=== PATIENT | male | born 1945 | race American Indian/Alaskan Native ===

== ENCOUNTER 2017-03-20 07:19 | Inpatient (IN) | payer MEDICARE ==
[2017-03-20 07:27] VITALS: BMI 21.2
[2017-03-20 08:09] LABS: VENOUS BLOOD GAS PCO2 40 mmHg (40-60); VENOUS BLOOD PH 7.52 (7.32-7.43)
[2017-03-20 08:11] LABS: BASO # 0.1 K/uL (0.0-0.2); BASO % 0.6 % (0.0-2.0); EOS # 0.3 K/uL (0.0-0.7); EOS % 2.4 % (0.0-4.0); HEMATOCRIT 31.8 % (35.0-51.0); LYMPH # 2.5 K/uL (1.0-4.3); LYMPH % 18.2 % (20.0-40.0); MEAN CELL VOLUME 82.1 fL (80.0-94.0); MEAN CORPUSCULAR HEMOGLOBIN 26.7 pg (27.0-31.0); MEAN CORPUSCULAR HGB CONC 32.5 g/dL (33.0-37.0); MEAN PLATELET VOLUME 8.4 fL (7.2-11.7); MONO # 0.6 K/uL (0.0-0.8); MONO % 4.5 % (0.0-10.0); NRBC % 0.1 % (0.0-2.0); RED CELL DISTRIBUTION WIDTH 17.2 % (11.5-14.5); WHITE BLOOD COUNT 13.8 K/uL (4.8-10.8)
[2017-03-20 08:14] LABS: INR 1.2
[2017-03-20] MEDS ORDERED: Vancomycin 1 GM 1 GM/250 ML BAG IV STA (08:16)
[2017-03-20] MEDS ORDERED: Cefepime 1 GM in Sodium Chloride 0.9% 50 ML IVPB ONE (08:17)
[2017-03-20] MEDS ORDERED: Ciprofloxacin 400mg/200ml D5W 400 MG/200 ML BAG IVPB STA (08:18)
--- NOTE | 2017-03-20 08:23 | C.PDOC ---
History Of Present Illness 71 y/o male [facility] for evaluation afterof tachycardic and tachypnea. As per EMS, patient has been tachycardic and tachypenic since his arrival to the [facility] 5 days ago, but symptoms apparently worsened today. As per [facility] , pt is currently at his baseline mental status, which is unresponsive and unable to follow commands. As per [facility] records, patient is DNR/DNI. Time Seen by Provider: 03/20/17 07:24 Chief Complaint (Nursing): Medical Clearance History Per: EMS History/Exam Limitations: clinical condition Onset/Duration Of Symptoms: Other (worse today ) Current Symptoms Are (Timing): Still Present Reports Recently: Hospitalized Additional History Per: EMS, [facility] Past Medical History Reviewed: Historical Data, Nursing Documentation, Vital Signs Vital Signs: Last Vital Signs Temp 97.4 F L 03/22/17 07:52 Pulse 87 03/22/17 08:00 Resp 20 03/22/17 07:52 BP 115/72 03/22/17 11:47 Pulse Ox 100 03/22/17 07:52 - Medical History PMH: Alzheimer's Disease, Dementia, GERD, HTN, Chronic Kidney Disease, Seizures - [facility] Procedures ASSISTANCE WITH RESPIRATORY VENTILATION, <24 HRS, CPAP (06/22/16) CENTRAL VENOUS CATHETER PLACEMENT WITH GUIDANCE (09/17/12) DRAINAGE OF BLADDER WITH DRAINAGE DEVICE, VIA OPENING (10/15/16) INSERTION OF ENDOTRACHEAL AIRWAY INTO TRACHEA, VIA OPENING (06/22/16) INSERTION OF FEEDING DEVICE INTO STOMACH, ENDO (10/08/15) INSERTION OF INFUSION DEV INTO SUP VENA CAVA, PERC APPROACH (10/15/16) INSPECTION OF UPPER INTESTINAL TRACT, ENDO (10/08/15) INTRODUCE OF OTH THERAP SUBST INTO RESP TRACT, VIA OPENING (03/11/17) INTRODUCTION OF NUTRITIONAL INTO UP GI, VIA OPENING (03/11/17) OTHER ENDOSCOPY OF SM INTEST (06/18/13) OTHER MISC PROCEDURE (10/14/14) REPLACE GASTROSTOMY TUBE (06/18/13) RESPIRATORY VENTILATION, LESS THAN 24 CONSECUTIVE HOURS (06/22/16) ULTRASONOGRAPHY OF RIGHT UPPER EXTREMITY VEINS, GUIDANCE (10/15/16) Family History: States: Other Other Family History: noncontributory - Social History Hx Tobacco Use: No Hx Alcohol Use: No Hx Substance Use: No - Immunization History Hx Tetanus Toxoid Vaccination: No Hx Influenza Vaccination: No Hx Pneumococcal Vaccination: No Review Of Systems Review Of Systems: ROS cannot be obtained secondary to pt's inabilty to answer questions. Physical Exam - Physical Exam Appears: Non-toxic, Chronically Ill Skin: Warm, Dry, No Rash, Other (4 sacral decubitus ulcers, right one with serosanguinous foul smelling discharge) Head: Normacephalic Eye(s): bilateral: Normal Inspection Oral Mucosa: Dry Neck: Supple Chest: Symmetrical Cardiovascular: Rhythm Regular (tachycardic), No Murmur Respiratory: No Rales, No Rhonchi, No Wheezing, Other (tachypnic) Gastrointestinal/Abdominal: Soft, No Tenderness, No Distention, No Guarding, No Rebound, Other (peg tube in LUQ) Back: Other (decubitus ulcers at sacral region) Extremity: No Tenderness, No Pedal Edema, No Deformity, No Swelling, Other ( contracted lower extremities, right heel ulcer with eschar) Extremity: Bilateral: Atraumatic Neurological/Psych: No Normal Speech (non-verbal), No Response To Commands, Other (awake) ED Course And Treatment - Laboratory Results Result Diagrams: 03/22/17 07:28 03/22/17 07:28 ECG: Interpreted By Me, Viewed By Me ECG Rhythm: Sinus Tachycardia ECG Interpretation: No Acute Changes Interpretation Of ECG: Left axis deviation. No acute ST/T wave changes. O2 Sat by Pulse Oximetry: 98 (on RA) Pulse Ox Interpretation: Normal - Radiology CXR: Interpreted by Me, Viewed By Me CXR Interpretation: Yes: Other (Picc line visible at SVC). No: Infiltrates Progress Note: Blood work, CXR, EKG, UA ordered and reviewed. Pt was given broad spectrum antibioitics - IV Cefepime, IV Ciprofloxacin (Avelox backordered) , IV vancomycin, as well as tylenol LA. IV Ns bolus given. - Physician Consult Information Physician Contacted: Bishnu Cavazos Outcome Of Conversation: Discussed patient with Dr. Cavazos, patient has known osetomyelitis of right hip and multiple sacral decubs- likely source for fever. He has PICC line and has been getting IV antbiotics at [facility]. Agrees with admission. Patient will need placement in [facility] for higher level of care. Critical Care Time - Critical Care Note Total Time (in mins): 35 Documented critical care: time excludes all time spent performing seperately billable procedures. Disposition - Disposition Disposition: HOSPITALIZED Disposition Time: 09:28 Condition: SERIOUS - Clinical Impression Clinical Impression: SIRS (systemic inflammatory response syndrome), Osteomyelitis of hip, Dehydration, Medical assessment - Scribe Statement The provider has reviewed the documentation as recorded by the Scribe Eileen Hall All medical record entries made by the Scribe were at my direction and personally dictated by me. I have reviewed the chart and agree that the record accurately reflects my personal performance of the history, physical exam, medical decision making, and the department course for this patient. I have also personally directed, reviewed, and agree with the discharge instructions and disposition. Decision To Admit - Pt Status Changed To: Hospital Disposition Of: Inpatient - Admit Certification Admit to Inpatient:: After my assessment, the patient will require hospitalization for at least two midnights. This is because of the severity of symptoms shown, intensity of services needed, and/or the medical risk in this patient being treated as an outpatient. - InPatient: Physician Admission Certification: I certify that this patient requires 2 or more midnights of care for the following reason:: see notes - . Bed Request Type: Telemetry Admitting Physician: Bishnu Cavazos Patient Diagnosis: SIRS (systemic inflammatory response syndrome), Decubitus ulcer of sacral area , Osteomyelitis of hip, Dehydration
[2017-03-20 08:27] LABS: CHLORIDE 120 mmol/L (98-107); POTASSIUM 4.5 mmol/L (3.6-5.2); SODIUM 157 mmol/L (132-148)
[2017-03-20 08:29] LABS: AST/SGOT 39 U/L (17-59); BILIRUBIN,TOTAL 0.4 mg/dL (0.2-1.3); CARBON DIOXIDE 27 mmol/L (22-30); GFR AFRICAN-AMERICAN > 60
[2017-03-20 08:30] LABS: ALB/GLOB RATIO 0.6 (1.0-2.1); ALKALINE PHOSPHATASE 192 U/L (38-126); ALT/SGPT 52 U/L (21-72); BLOOD UREA NITROGEN 39 mg/dL (9-20); CALCIUM 8.8 mg/dl (8.6-10.4); GLUCOSE,RANDOM 142 mg/dL (75-110); MAGNESIUM 2.2 mg/dL (1.6-2.3); PHOSPHOROUS 2.2 mg/dL (2.5-4.5); TOTAL PROTEIN 7.9 g/dL (6.3-8.3)
[2017-03-20 09:05] LABS: RBC URINE 23 /hpf (0-3); URINE BACTERIA RARE (<OCC); URINE BILIRUBIN NEGATIVE (NEGATIVE); URINE BLOOD 1+ (NEGATIVE); URINE COLOR Yellow (YELLOW); URINE GLUCOSE (UA) NORMAL (Normal); URINE KETONE NEGATIVE (NEGATIVE); URINE LEUKOCYTE ESTERASE 1+ Leu/uL (Negative); URINE PROTEIN 2+ mg/dL (NEGATIVE); URINE UROBILINOGEN NORMAL mg/dL (0.2-1.0); WBC URINE 49 /hpf (0-5)
[2017-03-20] MEDS ORDERED: Cefepime 1 GM in Sodium Chloride 0.9% 100 ML IVPB ONE (10:00)
--- NOTE | 2017-03-20 10:00 | RAD ---
HISTORY: Sepsis Patient COMPARISON: 05/08/2012 FINDINGS: LUNGS: Mild venous congestion. Patchy increased markings at the left lung base. Right PICC line with tip extending to the proximal right SVC. PLEURA: No significant pleural effusion identified, no pneumothorax apparent. CARDIOVASCULAR: Normal. OSSEOUS STRUCTURES: No significant abnormalities. VISUALIZED UPPER ABDOMEN: Normal. OTHER FINDINGS: None. IMPRESSION: Mild venous congestion. Patchy increased markings at the left lung base. Right PICC line with tip extending to the proximal right SVC.
--- NOTE | 2017-03-20 10:59 | CP.PCM.CON ---
History of Present Illness - History of Present Illness History of Present Illness: [facility] recent blood cultures + at [facility] large wounds + confused/ cachectic PMH- reviewed OBS ?CVA HTN failure to thrive ROS unobtainable NKA FH- non contrib Review of Systems - Review of Systems Systems not reviewed;Unavailable: Altered Mental Status All systems: reviewed and no additional remarkable complaints except Past Patient History - Infectious Disease Hx of Infectious Diseases: None - Tetanus Immunizations Tetanus Immunization: Unknown - Past Social History Smoking Status: Never Smoked - CARDIAC Hx Hypertension: Yes Hx Pacemaker: No - PULMONARY Hx Respiratory Disorders: No - NEUROLOGICAL Hx Alzheimer's Disease: Yes Hx Dementia: Yes Hx Seizures: Yes - HEENT Hx HEENT Problems: Yes (peg tube) Hx Difficulty Chewing: Yes Hx Glaucoma: Yes (LASER SURGERY) - RENAL Hx Chronic Kidney Disease: Yes - ENDOCRINE/METABOLIC Hx Endocrine Disorders: Yes Hx Diabetes Mellitus Type 1: Yes - HEMATOLOGICAL/ONCOLOGICAL Hx Blood Disorders: Yes (SEPSIS) - INTEGUMENTARY Hx Dermatological Problems: Yes Other/Comment: multiple decubiti ulcers to sacrum STAGE 2 and R HIP STAGE 4 &L buttocks STAGE 2 , b/l heel wounds, peg.COLOSTOMY LEFT LOWER ABDOMINAL AREA. - MUSCULOSKELETAL/RHEUMATOLOGICAL Hx Musculoskeletal Disorders: Yes (CONTRACTURE) Hx Falls: Yes - GASTROINTESTINAL Hx Gastrointestinal Disorders: Yes (PEG) Hx Colostomy: Yes Hx Gastroesophageal Reflux: Yes - GENITOURINARY/GYNECOLOGICAL Hx Genitourinary Disorders: Yes Hx Incontinence: Yes - PSYCHIATRIC Hx Substance Use: No - SURGICAL HISTORY Hx Surgeries: Yes Other/Comment: colostomy, picc in and out, peg tube - ANESTHESIA Hx Anesthesia: Yes Hx Anesthesia Reactions: No Hx Malignant Hyperthermia: No Meds Home Medications: Home Medication List Medication Instructions Recorded Confirmed Type Acetaminophen [Tylenol 650 mg Supp] 650 mg MN STAT sup 03/22/17 Rx Albuterol/Ipratropium [Duoneb 3 3 ml IH RQ6 PRN neb 03/22/17 Rx mg/0.5 mg (3 ml) UD] Enoxaparin [Lovenox] 40 mg SC DAILY syr 03/22/17 Rx Folic Acid 1 mg GT DAILY tab 03/22/17 Rx Latanoprost 0.005% Opht [Xalatan 0 ml OD HS bottle 03/22/17 Rx Opht] Meropenem [Merrem IV] 1 gm IVPB Q8 vial 03/22/17 Rx Metoprolol Tartrate [Lopressor] 25 mg GT BID tab 03/22/17 Rx Nut.tx.gluc.intoler,Lac-Fr,Soy 237 ml GT Q4 03/22/17 Rx [Glucerna 1.2 John] Pantoprazole [Protonix Susp] 40 mg GT DAILY packet 03/22/17 Rx Vancomycin 1 gm/NS 200 ml 1 gm IVPB Q12 42 Days bag 03/22/17 Rx [Vancocin] Allergies/Adverse Reactions: Allergies Allergy/AdvReac Type Severity Reaction Status Date / Time Latex, Natural Rubber AdvReac SWELLING Verified 03/20/17 07:26 Physical Exam - Constitutional Appears: Confused, Cachectic, Chronically Ill - Head Exam Head Exam: ATRAUMATIC, NORMAL INSPECTION, NORMOCEPHALIC - Eye Exam Eye Exam: PERRL. absent: Scleral icterus Pupil Exam: NORMAL ACCOMODATION - ENT Exam ENT Exam: Mucous Membranes Dry, Normal External Ear Exam - Neck Exam Neck exam: Negative for: Lymphadenopathy - Respiratory Exam Respiratory Exam: Decreased Breath Sounds, Rhonchi - Cardiovascular Exam Cardiovascular Exam: REGULAR RHYTHM, +S1, +S2 - GI/Abdominal Exam GI & Abdominal Exam: Diminished Bowel Sounds, Soft. absent: Tenderness - Rectal Exam Rectal Exam: Deferred - Exam Exam: NORMAL INSPECTION - Extremities Exam Extremities exam: Positive for: pedal edema, tenderness. Negative for: calf tenderness, pedal pulses present Additional comments: large hip decub - IV - Back Exam Back exam: absent: CVA tenderness (L), CVA tenderness (R) - Neurological Exam Neurological exam: Altered, CN II-XII Intact - Psychiatric Exam Psychiatric exam: Depressed - Skin Skin Exam: Dry Results - Vital Signs Recent Vital Signs: Last Vital Signs Temp 99.8 F H 03/20/17 09:23 Pulse 106 H 03/20/17 09:23 Resp 16 03/20/17 09:23 BP 135/74 03/20/17 09:23 Pulse Ox 98 03/20/17 09:38 - Labs Result Diagrams: 03/22/17 07:28 03/22/17 07:28 Labs: Laboratory Results - last 24 hr 03/20/17 03/20/17 03/20/17 07:32 07:59 07:59 WBC 13.8 H RBC 3.87 L Hgb 10.3 L Hct 31.8 L MCV 82.1 MCH 26.7 L MCHC 32.5 L RDW 17.2 H Plt Count 571 H MPV 8.4 Neut % (Auto) 74.3 Lymph % (Auto) 18.2 L [place] % (Auto) 4.5 Eos % (Auto) 2.4 Baso % (Auto) 0.6 Neut # 10.3 H Lymph # 2.5 [place] # 0.6 Eos # 0.3 Baso # 0.1 PT 13.4 H INR 1.2 APTT 45 H pO2 VBG pH VBG pCO2 VBG HCO3 VBG Total CO2 VBG O2 Sat (Calc) VBG Base Excess VBG Potassium Glucose Lactate Sodium Potassium Chloride Carbon Dioxide Anion Gap BUN Creatinine Est GFR ( Amer) Est GFR (Non-Af Amer) POC Glucose (mg/dL) 175 H Random Glucose Calcium Phosphorus Magnesium Total Bilirubin AST ALT Alkaline Phosphatase Total Protein Albumin Globulin Albumin/Globulin Ratio Venous Blood Potassium Urine Color Urine Clarity Urine pH Ur Specific [place] Urine Protein Urine Glucose (UA) Urine Ketones Urine Blood Urine Nitrate Urine Bilirubin Urine Urobilinogen Ur Leukocyte Esterase Urine WBC (Auto) Urine RBC (Auto) Ur Squamous Epith Cells Urine Bacteria Urine Yeast (Budding) 03/20/17 03/20/17 03/20/17 07:59 08:06 08:06 WBC RBC Hgb Hct MCV MCH MCHC RDW Plt Count MPV Neut % (Auto) Lymph % (Auto) [place] % (Auto) Eos % (Auto) Baso % (Auto) Neut # Lymph # [place] # Eos # Baso # PT INR APTT pO2 33 VBG pH 7.52 H VBG pCO2 40 VBG HCO3 31.3 VBG Total CO2 33.9 H VBG O2 Sat (Calc) 70.2 H VBG Base Excess 9.0 H VBG Potassium 5.5 H Glucose 157 H Lactate 1.8 Sodium 157 H 154.0 H Potassium 4.5 Chloride 120 H 124.0 H Carbon Dioxide 27 Anion Gap 15 BUN 39 H Creatinine 1.0 Est GFR ( Amer) > 60 Est GFR (Non-Af Amer) > 60 POC Glucose (mg/dL) Random Glucose 142 H Calcium 8.8 Phosphorus 2.2 L Magnesium 2.2 Total Bilirubin 0.4 AST 39 ALT 52 Alkaline Phosphatase 192 H D Total Protein 7.9 Albumin 3.1 L Globulin 4.9 H Albumin/Globulin Ratio 0.6 L Venous Blood Potassium 5.5 H Urine Color Yellow Urine Clarity Hazy Urine pH 7.0 Ur Specific [place] 1.016 Urine Protein 2+ H Urine Glucose (UA) Normal Urine Ketones Negative Urine Blood 1+ H Urine Nitrate Negative Urine Bilirubin Negative Urine Urobilinogen Normal Ur Leukocyte Esterase 1+ H Urine WBC (Auto) 49 H Urine RBC (Auto) 23 H Ur Squamous Epith Cells 48 H Urine Bacteria Rare Urine Yeast (Budding) Many H Assessment & Plan (1) Anemia Status: Acute (2) Sacral decubitus ulcer Status: Acute (3) Sepsis Status: Acute (4) Ulcer Status: Acute - Assessment and Plan (Free Text) Assessment: start empiric rx with coverage for MRSA and ESBL gram neg may need debridement possible pneumonia cont iv rx and wound care nutritional support
[2017-03-20 11:13] LABS: VENOUS BLOOD GAS BASE EXCESS 2.9 mmol/L (0.0-2.0); VENOUS BLOOD GAS PCO2 43 mmHg (40-60); VENOUS BLOOD PH 7.42 (7.32-7.43)
[2017-03-20] MEDS: Vancomycin 1 gm/NS 200 ml 1 GM/200 ML BAG IVPB SCH (12:31)
[2017-03-20] MEDS ORDERED: Sodium Chloride 0.9% 1,000 ML IV ONE (14:18)
[2017-03-20] MEDS: Meropenem 1 GM in Sodium Chloride 0.9% 100 ML IVPB SCH ×2 (14:58→22:30)
[2017-03-20] MEDS ORDERED: Albuterol-Ipratrop 3 mg / 0.5 (3 ml) UD IH PRN (16:42)
[2017-03-20] MEDS: Sodium Chloride 0.45% 1,000 ML IV SCH (17:18)
[2017-03-20] MEDS ORDERED: Sodium Chloride 0.45% 1,000 ML IV ONE (17:34)
[2017-03-20] MEDS: Latanoprost 2.5 ml Opht Soln OD SCH (22:30)
[2017-03-20] MEDS: levETIRAcetam 100 mg/ml (5ml) Oral Syringe GT SCH (22:30)
[2017-03-21] MEDS: Vancomycin 1 gm/NS 200 ml 1 GM/200 ML BAG IVPB SCH ×2 (00:23→13:30)
[2017-03-21 01:04] VITALS: RESP 20
--- NOTE | 2017-03-21 03:53 | HP ---
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 He was sent to [facility] for IV antibiotics and he was sent to [facility] emergency room because I cannot take care of him any more there they said. He has been tachycardiac. His baseline unresponsiveness and mental status is about the same. He has a feeding tube. He has a colostomy. All 4 extremities are contracted. He has got heel ulcers, sacral ulcers. He has had sepsis multiple times, hypertension, dementia, diabetes, CVA, colostomy feeding tube. His baseline is his eyes open and his mouth wide open, mouth breathing, nonverbal. He has glaucoma surgery, renal sufficiency, diabetes, multiple decubitus ulcers on many parts of his body which healed and came back, sacral and buttocks heals. He has got reflux, incontinence. FAMILY HISTORY: No family history. SOCIAL HISTORY: Never smoked. No alcohol. No drugs. ALLERGIES: HE HAS A LATEX ALLERGY. MEDICATIONS: He is on metoprolol, omeprazole, DuoNebs, Colace, folic acid, Glucerna, Keppra for seizures which he also has. REVIEW OF SYSTEMS: We cannot do review of systems with him because he is nonverbal and his mouth is opened at his baseline, due to a lot of crust in the mouth, his mouth is much better, now they cleaned it out, it is moist with IV fluids. PHYSICAL EXAMINATION: VITAL SIGNS: 102.1 temperature, 125 pulse, 107/54 blood pressure, 36 respiratory rate and 98% O2 sat on room air. HEENT: Head atraumatic and normocephalic. Throat now moist. Eyes are opened and staring. Mouth is in the O-sign position. NECK: Supple. HEART: Regular rate. LUNGS: Decreased breath sounds. Clear to auscultation, poor effort. ABDOMEN: Soft, he has a PEG tube with colostomy. No distention. EXTREMITIES: All 4 contracted. No edema. He has got stage IV sacral ulcers on the right hip, osteomyelitis. He has got heel ulcers. He has been septic, and he is on IV antibiotics. LABORATORY DATA: He has 13.8 white count, 10.3 hemoglobin, 31.8 hematocrit with 571 platelets. INR is 1.2. His lactate is 1.8 is down to 1. 7.42 pH down it is better. 157 sodium, potassium 4.5, BUN 39, creatinine 1, GFR is greater than 60, sugar is 142, calcium is 8.8, phosphorous 2.2, magnesium 2.2, total bilirubin is 0.4, AST is 39, ALT is 59, alk phos is 192, total protein is 7.9. Urine is 1+ leukocytes, bacteria rare, many yeast. He has consult with infectious disease. He will on albuterol, folic acid, Keppra, Lopressor, Maxipime one dose. He has got Merrem IV, vancomycin IV. He will be on IV fluids and hopefully we will get him to a LTAC since subacute rehab cannot take care of him. He is septic with right hip osteomyelitis, severe large sacral ulcer septic. Bishnu Cavazos DO
[2017-03-21] MEDS: Meropenem 1 GM in Sodium Chloride 0.9% 100 ML IVPB SCH ×3 (06:01→22:30)
[2017-03-21 07:40] LABS: HEMATOCRIT 29.3 % (35.0-51.0); MEAN CELL VOLUME 82.6 fL (80.0-94.0); MEAN CORPUSCULAR HEMOGLOBIN 26.7 pg (27.0-31.0); MEAN CORPUSCULAR HGB CONC 32.4 g/dL (33.0-37.0); MEAN PLATELET VOLUME 8.8 fL (7.2-11.7); RED CELL DISTRIBUTION WIDTH 17.2 % (11.5-14.5); WHITE BLOOD COUNT 12.1 K/uL (4.8-10.8)
[2017-03-21 08:34] LABS: CHLORIDE 117 mmol/L (98-107); SODIUM 154 mmol/L (132-148)
[2017-03-21 08:35] LABS: POTASSIUM 3.6 mmol/L (3.6-5.2)
[2017-03-21 08:37] LABS: ALB/GLOB RATIO 0.6 (1.0-2.1); AST/SGOT 28 U/L (17-59); BILIRUBIN,TOTAL 0.3 mg/dL (0.2-1.3); BLOOD UREA NITROGEN 28 mg/dL (9-20); CARBON DIOXIDE 25 mmol/L (22-30); GFR AFRICAN-AMERICAN > 60; GLUCOSE,RANDOM 105 mg/dL (75-110); TOTAL PROTEIN 6.8 g/dL (6.3-8.3)
[2017-03-21 08:38] LABS: ALKALINE PHOSPHATASE 145 U/L (38-126); ALT/SGPT 39 U/L (21-72); CALCIUM 8.5 mg/dl (8.6-10.4)
--- NOTE | 2017-03-21 10:14 | PN ---
SUBJECTIVE: I saw him resting comfortably in room #555 at [facility]. He is on IV antibiotics. He has his PEG tube feedings running. His eyes are open , his mouth is in the O sign, but it is clean, not crusty; this is his baseline. He needs 6 to 8 weeks of IV antibiotics. PHYSICAL EXAMINATION: VITAL SIGNS: He has a 97.6 temperature, 92 pulse, 120/72 blood pressure, 20 respiratory rate and 100% O2 sat on 2 L. HEENT: Head is atraumatic and normocephalic. HEART: Regular rate. LUNGS: Clear to auscultation with decreased breath sounds. ABDOMEN: Soft. He has a colostomy. He has a feeding tube. EXTREMITIES: All 4 contracted. His skin has got heel ulcers; a large, stage IV sacral ulcer and a right hip osteomyelitis. MEDICATIONS: He needs to be on albuterol, folic acid, Keppra, Lopressor, Lovenox, Merrem for 6 to 8 weeks, Protonix, IV fluids, vancomycin for 6 to 8 weeks and Xalatan. LABORATORY DATA: We are checking his labs, they are pending this morning. PLAN: Hopefully, we can get him to LTAC since [facility] could not handle him. I did call in case operator to help us to go to LTAC for his care. The patient has a severe osteomyelitis of the right hip and severe large sacral ulcer. Bishnu Cavazos DO MTDEron
[2017-03-21] MEDS: Pantoprazole 40 mg Susp UD GT SCH (10:40)
[2017-03-21] MEDS: Enoxaparin 40 mg Syringe SC SCH (10:40)
[2017-03-21] MEDS: levETIRAcetam 100 mg/ml (5ml) Oral Syringe GT SCH ×2 (10:59→19:00)
--- NOTE | 2017-03-21 13:03 | CP.PCM.PN ---
Subjective - Date & Time of Evaluation Date of Evaluation: 03/21/17 Time of Evaluation: 10:00 - Subjective Subjective: grew esbl + gram neg in [place] may started empiric rx here prognosis guarded needs comprehensive wound care eval Objective - Vital Signs/Intake and Output Vital Signs (last 24 hours): Temp Pulse Resp BP Pulse Ox 97.0 F L 87 20 126/70 97 03/21/17 08:46 03/21/17 08:46 03/21/17 08:46 03/21/17 10:40 03/21/17 08:46 Intake and Output: 03/21/17 03/21/17 06:59 18:59 Intake Total 100 Output Total 300 Balance -200 - Medications Medications: Current Medications Albuterol/Ipratropium (Duoneb 3 Mg/0.5 Mg (3 Ml) Ud) 3 ml IH RQ6 PRN PRN Reason: Wheezing Enoxaparin Sodium (Lovenox) 40 mg SC DAILY [facility] Last Admin: 03/21/17 10:40 Dose: 40 mg Folic Acid (Folic Acid) 1 mg GT DAILY [facility] Last Admin: 03/21/17 10:40 Dose: 1 mg Meropenem 1 gm/ Sodium (Chloride) 100 mls @ 100 mls/hr IVPB Q8 CR Last Admin: 03/21/17 06:01 Dose: 100 mls/hr Vancomycin/Sodium Chloride (Vancocin) 1 gm in 200 mls @ 133.333 mls/hr IVPB Q12H CR Stop: 03/25/17 12:31 Last Admin: 03/21/17 00:23 Dose: 133.333 mls/hr Sodium Chloride (Sodium Chloride 0.45%) 1,000 mls @ 40 mls/hr IV .Q24H [facility] Last Admin: 03/20/17 17:18 Dose: 40 mls/hr Latanoprost (Xalatan Opht) 0 ml OD HS [facility] Last Admin: 03/20/17 22:30 Dose: 2.5 ml Levetiracetam (Keppra) 750 mg GT BID [facility] Last Admin: 03/21/17 10:59 Dose: 750 mg Metoprolol Tartrate (Lopressor) 25 mg GT BID [facility] Last Admin: 03/21/17 10:40 Dose: 25 mg Pantoprazole Sodium (Protonix Susp) 40 mg GT DAILY [facility] Last Admin: 03/21/17 10:40 Dose: 40 mg - Labs Labs: 03/21/17 07:35 03/21/17 08:06 PT 13.4 SECONDS (9.7-12.2) H 03/20/17 07:59 INR 1.2 03/20/17 07:59 APTT 45 SECONDS (21-34) H 03/20/17 07:59 - Constitutional Appears: Confused, Cachectic, Chronically Ill - Head Exam Head Exam: NORMOCEPHALIC - Eye Exam Eye Exam: PERRL - ENT Exam ENT Exam: Mucous Membranes Dry - Neck Exam Neck Exam: absent: Lymphadenopathy, Thyromegaly - Respiratory Exam Respiratory Exam: Decreased Breath Sounds, Rhonchi - Cardiovascular Exam Cardiovascular Exam: REGULAR RHYTHM - GI/Abdominal Exam GI & Abdominal Exam: Distended, Soft - Rectal Exam Rectal Exam: Deferred Assessment and Plan (1) Anemia Status: Acute (2) Diarrhea Status: Acute (3) Hematuria Status: Acute (4) Hypernatremia Status: Acute (5) Sacral decubitus ulcer Status: Acute (6) Sepsis Status: Acute (7) Ulcer Status: Acute
[2017-03-21] MEDS: Sodium Chloride 0.45% 1,000 ML IV SCH (20:34)
[2017-03-21] MEDS: Latanoprost 2.5 ml Opht Soln OD SCH (22:30)
[2017-03-22] MEDS: Vancomycin 1 gm/NS 200 ml 1 GM/200 ML BAG IVPB SCH ×2 (00:01→12:07)
[2017-03-22] MEDS: Sodium Chloride 0.45% 1,000 ML IV SCH (04:10)
[2017-03-22] MEDS: Meropenem 1 GM in Sodium Chloride 0.9% 100 ML IVPB SCH ×2 (05:02→13:40)
[2017-03-22 07:40] LABS: HEMATOCRIT 29.1 % (35.0-51.0); MEAN CELL VOLUME 84.1 fL (80.0-94.0); MEAN CORPUSCULAR HEMOGLOBIN 26.6 pg (27.0-31.0); MEAN CORPUSCULAR HGB CONC 31.6 g/dL (33.0-37.0); MEAN PLATELET VOLUME 9.2 fL (7.2-11.7); RED CELL DISTRIBUTION WIDTH 16.8 % (11.5-14.5); WHITE BLOOD COUNT 10.5 K/uL (4.8-10.8)
[2017-03-22 07:53] VITALS: TEMP 97.4
[2017-03-22 08:13] LABS: CHLORIDE 115 mmol/L (98-107)
[2017-03-22 08:14] LABS: POTASSIUM 3.6 mmol/L (3.6-5.2); SODIUM 154 mmol/L (132-148)
[2017-03-22 08:16] LABS: ALB/GLOB RATIO 0.6 (1.0-2.1); ALKALINE PHOSPHATASE 149 U/L (38-126); ALT/SGPT 47 U/L (21-72); AST/SGOT 39 U/L (17-59); BILIRUBIN,TOTAL 0.4 mg/dL (0.2-1.3); BLOOD UREA NITROGEN 26 mg/dL (9-20); CARBON DIOXIDE 24 mmol/L (22-30); GFR AFRICAN-AMERICAN > 60; GLUCOSE,RANDOM 106 mg/dL (75-110); TOTAL PROTEIN 6.8 g/dL (6.3-8.3)
[2017-03-22 08:17] LABS: CALCIUM 8.5 mg/dl (8.6-10.4)
--- NOTE | 2017-03-22 11:09 | DS ---
HISTORY OF PRESENT ILLNESS: I saw Joann resting comfortably in bed. He is sleeping. He has the sign it is not as clear. Mild congestion, but he gets them from time to time occasionally this is baseline. He looks good. PHYSICAL EXAMINATION: GENERAL: He is nonverbal. He stares. He has got very large sacral decubitus, right hip osteomyelitis and needs 6 to 8 weeks of IV antibiotics. VITAL SIGNS: 97.9 temperature, 83 pulse, 112/68 blood pressure, 20 respiratory rate and 100% O2 saturation. HEENT: His head is atraumatic and normocephalic. HEART: Regular rate. LUNGS: Decreased breath sounds. Poor inspiration. Congestion changes daily. Sometimes needs to be suctioned. ABDOMEN: Soft. Positive PEG. Positive colostomy. EXTREMITIES: All contracted. No edema. He has got ulcers on his heels and sacrum large stage IV, also right hip osteomyelitis. He will go to [facility]. Today, I am told by case management. On DuoNeb, folic acid, Keppra, Lopressor, Lovenox, Merrem for 6 to 8 weeks, Protonix, IV fluids, vancomycin for 6 to 8 weeks, and Xalatan. LABORATORY DATA: Last labs 154 sodium, 3.6 potassium, BUN of 28, creatinine of 0.7, GFR is greater than 60, sugar is 105, and calcium is 8.5. Total bilirubin is 0.3, AST is 28, ALT is 39, alkaline phosphatase is 145, total protein is 6.8, and albumin is 2.5. White count is 12.1, getting better, hemoglobin is 9.5, hematocrit is 29.3, and platelets are 44. IMPRESSION AND PLAN: He has been seen by infectious disease and he will need to be on 6 to 8 weeks of IV antibiotics, we will get him to LTAC. Family want full code. They want everything done, no matter what. Discussed many times with them about Do no resuscitate/Do not Intubate and hospice, they refused. So, we discharged today to [facility]. DIAGNOSES: Are large sacral ulcer, right hip osteomyelitis on 6 to 8 weeks of intravenous antibiotics. Bishnu Cavazos DO [facility]
[2017-03-22] MEDS: levETIRAcetam 100 mg/ml (5ml) Oral Syringe GT SCH (11:13)
[2017-03-22 11:47] VITALS: BP 115/72
[2017-03-22] MEDS: Enoxaparin 40 mg Syringe SC SCH (11:47)
[2017-03-22] MEDS: Pantoprazole 40 mg Susp UD GT SCH (11:47)
--- NOTE | 2017-03-22 14:16 | CP.PCM.PN ---
Subjective - Date & Time of Evaluation Date of Evaluation: 03/22/17 Time of Evaluation: 09:00 - Subjective Subjective: blood c/s positive iv rx in progress Objective - Vital Signs/Intake and Output Vital Signs (last 24 hours): Temp Pulse Resp BP Pulse Ox 97.4 F L 89 20 115/72 100 03/22/17 07:52 03/22/17 07:52 03/22/17 07:52 03/22/17 11:47 03/22/17 07:52 Intake and Output: 03/22/17 03/22/17 06:59 18:59 Intake Total 320 Output Total 1000 Balance -1000 320 - Medications Medications: Current Medications Albuterol/Ipratropium (Duoneb 3 Mg/0.5 Mg (3 Ml) Ud) 3 ml IH RQ6 PRN PRN Reason: Wheezing Enoxaparin Sodium (Lovenox) 40 mg SC DAILY [facility] Last Admin: 03/22/17 11:47 Dose: 40 mg Folic Acid (Folic Acid) 1 mg GT DAILY [facility] Last Admin: 03/22/17 11:47 Dose: 1 mg Meropenem 1 gm/ Sodium (Chloride) 100 mls @ 100 mls/hr IVPB Q8 CR Last Admin: 03/22/17 13:40 Dose: 100 mls/hr Vancomycin/Sodium Chloride (Vancocin) 1 gm in 200 mls @ 133.333 mls/hr IVPB Q12H [facility] Stop: 03/25/17 12:31 Last Admin: 03/22/17 12:07 Dose: 133.333 mls/hr Sodium Chloride (Sodium Chloride 0.45%) 1,000 mls @ 40 mls/hr IV .Q24H [facility] Last Admin: 03/22/17 04:10 Dose: 40 mls/hr Latanoprost (Xalatan Opht) 0 ml OD HS [facility] Last Admin: 03/21/17 22:30 Dose: 2.5 ml Levetiracetam (Keppra) 750 mg GT BID [facility] Last Admin: 03/22/17 11:13 Dose: 750 mg Metoprolol Tartrate (Lopressor) 25 mg GT BID [facility] Last Admin: 03/22/17 11:47 Dose: 25 mg Pantoprazole Sodium (Protonix Susp) 40 mg GT DAILY [facility] Last Admin: 03/22/17 11:47 Dose: 40 mg - Labs Labs: 03/22/17 07:28 03/22/17 07:28 PT 13.4 SECONDS (9.7-12.2) H 03/20/17 07:59 INR 1.2 03/20/17 07:59 APTT 45 SECONDS (21-34) H 03/20/17 07:59 - Constitutional Appears: Non-toxic, Chronically Ill - Head Exam Head Exam: NORMOCEPHALIC - Eye Exam Eye Exam: PERRL - ENT Exam ENT Exam: Mucous Membranes Dry, Normal External Ear Exam - Neck Exam Neck Exam: absent: Lymphadenopathy - Respiratory Exam Respiratory Exam: Decreased Breath Sounds - Cardiovascular Exam Cardiovascular Exam: REGULAR RHYTHM - GI/Abdominal Exam GI & Abdominal Exam: Distended, Soft - Rectal Exam Rectal Exam: Deferred - Exam Exam: NORMAL INSPECTION - Extremities Exam Extremities Exam: absent: Pedal Edema - Back Exam Back Exam: absent: CVA tenderness (L), CVA tenderness (R) - Neurological Exam Neurological Exam: Altered - Skin Skin Exam: Dry Assessment and Plan (1) Anemia Status: Acute (2) Diarrhea Status: Acute (3) Hematuria Status: Acute (4) Hypernatremia Status: Acute (5) Sacral decubitus ulcer Status: Acute (6) Sepsis Status: Acute (7) Ulcer Status: Acute
[2017-03-22 16:14] VITALS: PULSE 87
[2017-03-24 08:03] VITALS: O2SAT 98
== END 2017-03-22 15:55 | DRG 871 ==
LOC: C.ER 07:19 → C.9E 09:28 → C.5S 17:09
PROVIDERS: ADMIT Family Medicine; ATTEND Family Medicine
DX: A41.1 Sepsis due to other specified staphylococcus (principal); L89.154 Pressure ulcer of sacral region, stage 4; E87.0 Hyperosmolality and hypernatremia; R64 Cachexia; E11.621 Type 2 diabetes mellitus with foot ulcer; E11.22 Type 2 diabetes mellitus with diabetic chronic kidney disease; E11.69 Type 2 diabetes mellitus with other specified complication; M86.8X6 Other osteomyelitis, lower leg; N39.0 Urinary tract infection, site not specified; L97.419 Non-pressure chronic ulcer of right heel and midfoot with unspecified severity; L97.429 Non-pressure chronic ulcer of left heel and midfoot with unspecified severity; E86.0 Dehydration; G30.9 Alzheimer's disease, unspecified; F02.80 Dementia in other diseases classified elsewhere, unspecified severity, without behavioral disturbance, psychotic disturbance, mood disturbance, and anxiety; D64.9 Anemia, unspecified; I12.9 Hypertensive chronic kidney disease with stage 1 through stage 4 chronic kidney disease, or unspecified chronic kidney disease; N18.9 Chronic kidney disease, unspecified; K21.9 Gastro-esophageal reflux disease without esophagitis; R32 Unspecified urinary incontinence; Z66 Do not resuscitate; Z79.4 Long term (current) use of insulin; Z79.899 Other long term (current) drug therapy; Z86.73 Personal history of transient ischemic attack (TIA), and cerebral infarction without residual deficits; Z93.3 Colostomy status; R62.7 Adult failure to thrive